=== PATIENT | female | born 1985 | race American Indian/Alaskan Native ===

== ENCOUNTER 2018-12-05 05:27 | Outpatient (CLI) | payer BC, MEDICAID ==
[2018-12-05 06:23] VITALS: BP 124/80
== END 2018-12-05 06:43 | disposition home or self-care (01) ==
LOC: TRG 05:27
PROVIDERS: ATTEND Obstetrics & Gynecology
DX: O47.1 False labor at or after 37 completed weeks of gestation (principal); Z3A.37 37 weeks gestation of pregnancy
CPT/HCPCS: 59025

== ENCOUNTER 2018-12-06 07:38 | Outpatient (CLI) | payer BC, MEDICAID ==
[2018-12-06 07:57] VITALS: BP 126/80
== END 2018-12-06 10:23 | disposition home or self-care (01) ==
LOC: TRG 07:38
PROVIDERS: ATTEND Obstetrics & Gynecology
DX: O60.03 Preterm labor without delivery, third trimester (principal); Z3A.37 37 weeks gestation of pregnancy

== ENCOUNTER 2018-12-06 17:35 | Inpatient (IN) | payer BC, MEDICAID ==
[2018-12-06] MEDS ORDERED: NUBAIN IV PRN (18:30)
[2018-12-06] MEDS ORDERED: BRETHINE IVP PRN (18:30)
[2018-12-06] MEDS ORDERED: MINERAL OIL PO PRN (18:30)
[2018-12-06] MEDS ORDERED: STADOL IV PRN (18:30)
[2018-12-06] MEDS ORDERED: AMPICILLIN/NS 2 GM/100 ML 2 GM/100 ML BAG IV ONE (18:30)
[2018-12-06] MEDS ORDERED: BRETHINE SUB-Q PRN (18:30)
[2018-12-06] MEDS ORDERED: XYLOCAINE 2% INFILTRATI ONE (18:30)
[2018-12-06] MEDS ORDERED: ZOFRAN IV PRN ×2 (18:30→22:57)
[2018-12-06 18:51] LABS: Hematocrit 41.6 % (30.3-42.9); Hemoglobin 14.1 gm/dl (10.1-14.3); Mean Corpuscular HGB Conc 34 % (30-34); Mean Corpuscular Volume 93 fl (79-97); Platelet Count 146 K/mm3 (140-440); Red Blood Count 4.47 M/mm3 (3.65-5.03); Red Cell Distribution Width 15.6 % (13.2-15.2)
[2018-12-06] MEDS: SUBLIMAZE IV PRN ×2 (18:51→20:37)
[2018-12-06] MEDS ORDERED: LACTATED RINGERS 1,000 ML IV SCH (19:00)
[2018-12-06] MEDS ORDERED: PITOCin/NS 30 UNIT/500ML 30 UNITS/500 ML BAG IV SCH ×2 (19:00)
[2018-12-06] MEDS: PITOCin/NS 20 UNIT/1000ML DRIP 20 UNITS/1,000 ML BAG IV SCH ×2 (20:15→21:56)
--- NOTE | 2018-12-06 21:03 | Procedure Note ---
OB Delivery Note - Delivery Date of Delivery: 12/06/18 Surgeon: JUDY GODINEZ Estimated blood loss: 200cc - Vaginal Delivery presentation: vertex Delivery position: OA Intrapartum events: mult.variable deceleratio Delivery induction: none Delivery monitor: external FHT, external uterine Route of delivery: Delivery placenta: spontaneous Delivery cord: 3 umbilical vessels Delivery laceration: 2nd degree Delivery repair: vicryl Anesthesia: local Delivery comments: Called to attend delivery as patient's OB provider was en route to hospital. Spontaneous vaginal delivery at 20:05 of liveborn male infant weighing 6 lb. 11 oz. over 2nd degree midline episiotomy with apgars of 8/9. Deep variable FHR decelerations just prior to delivery. 2nd degree midline episiotomy cut to expedite delivery. Tight nuchal cord times 1, manually reduced. Baby was vigorous at and cried immediately after . Baby was placed skin to skin with mom where he was suctioned with a bulb syringe and dried with warm blankets. 3 vessel cord double clamped and cut after cessation of pulsation. Cord blood obtained. Spontaneous delivery of intact placenta and membranes by osborn mechanism. EBL 200 cc. Pitocin to IV fluids after delivery of placenta. Fundus firm and midline. 2nd degree midline episiotomy repaired with 2-0 vicryl in usual sterile fashion. No other lacerations noted. Vaginal sweep negative. Sponge count correct. Mother and baby stable.
--- NOTE | 2018-12-06 21:12 | History and Physical Report ---
History of Present Illness Date of examination: 12/06/18 Date of admission: 12/06/18 17:55 Chief complaint: My water broke History of present illness: Pt is a 33 year old who presents in active labor with srom at 37.5 weeks. Her EDc 12/23/18 Pt was 4 on admission and rapidly progressed to complete. She received care at [facility]. 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 records are not available for review. 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 Social history: - Obstetrical History Expected Date of Delivery: 12/23/18 Actual Gestation: 37 Week(s) 4 Day(s) : 1 Medications and Allergies Allergies Allergy/AdvReac Type Severity Reaction Status Date / Time No Known Allergies Allergy Verified 12/05/18 06:33 Home Medications Medication Instructions Recorded Confirmed Last Taken Type No Known Home Medications [No 12/06/18 12/06/18 Unknown History Reported Home Medications] Active Meds: Active Medications Butorphanol Tartrate (Stadol) 2 mg IV Q2H PRN PRN Reason: Pain , Severe (7-10) Ephedrine Sulfate (Ephedrine Sulfate) 10 mg IV Q2M PRN PRN Reason: Hypotension Fentanyl (Sublimaze) 100 mcg IV Q2H PRN PRN Reason: Labor Pain Last Admin: 12/06/18 20:37 Dose: 100 mcg Documented by: Oxytocin/Sodium Chloride (Pitocin/Ns 20 Unit/1000ml Drip) 20 units in 1,000 mls @ 125 mls/hr IV DIRECT DELMAR Oxytocin/Sodium Chloride (Pitocin/Ns 30 Unit/500ml) 30 units in 500 mls @ 1 mls/hr IV TITR DELMAR; Protocol Oxytocin/Sodium Chloride (Pitocin/Ns 30 Unit/500ml) 30 units in 500 mls @ 2 mls/hr IV TITR DELMAR; Protocol Lactated Ringer's (Lactated Ringers) 1,000 mls @ 125 mls/hr IV DIRECT DELMAR Last Admin: 12/06/18 18:46 Dose: 125 mls/hr Documented by: Ampicillin Sodium (Ampicillin/Ns 1 Gm/50 Ml) 1 gm in 50 mls @ 100 mls/hr IV Q4HR DELMAR; Protocol Mineral Oil (Mineral Oil) 30 ml PO QHS PRN PRN Reason: Constipation Nalbuphine HCl (Nubain) 10 mg IV Q2H PRN PRN Reason: Pain, Moderate (4-6) Ondansetron HCl (Zofran) 4 mg IV Q8H PRN PRN Reason: Nausea And Vomiting Terbutaline Sulfate (Brethine) 0.25 mg SUB-Q ONCE PRN PRN Reason: Hyperstimulation/Hypertonicity Terbutaline Sulfate (Brethine) 0.25 mg IVP ONCE PRN PRN Reason: Hyperstimulation/Hypertonicity Review of Systems All systems: negative Genitourinary: leakage of fluid, contractions - Vital Signs Vital signs: Vital Signs Pulse Pulse Ox 118 H 100 12/06/18 18:12 12/06/18 18:12 Temp Pulse Resp BP Pulse Ox 98.2 F 125 H 20 122/58 68 L 12/06/18 18:34 12/06/18 21:04 12/06/18 20:37 12/06/18 20:49 12/06/18 21:04 - Physical Exam Breasts: Cardiovascular: Regular rate, Normal S1, Normal S2 Abdomen: Positive: normal appearance, soft, normal bowel sounds. Negative: distention, tenderness Vulva: both: normal Vagina: Positive: normal moisture. Negative: discharge Cervix: Negative: lesion, discharge Uterus: Positive: normal size, normal contour Adnexa: both: normal Anus/Rectum: Positive: normal perianal skin, heme negative. Negative: rectal mass, hemorrhoids Extremities: Deep Tendon Reflex Grade: Normal +2 - Obstetrical FHR: auscultation normal Cervical Dilatation: 4 Cervical Effacement Percentage: 80 station: 0 Results Result Diagrams: 12/06/18 18:40 Abnormal lab results 12/06/18 Range/Units 18:40 WBC 11.1 H (4.5-11.0) K/mm3 RDW 15.6 H (13.2-15.2) % All other labs normal. Assessment and Plan IUP at 37.4 in labor. Admit. Will treat for unknown GBS. Will augment if needed. Anticipate .
[2018-12-06] MEDS ORDERED: AMPICILLIN/NS 1 GM/50 ML 1 GM/50 ML BAG IV SCH (22:31)
[2018-12-06] MEDS ORDERED: TYLENOL PO PRN (22:57)
[2018-12-06] MEDS ORDERED: DULCOLAX PR PRN (22:57)
[2018-12-06] MEDS ORDERED: LANSINOH TP PRN (22:57)
[2018-12-06] MEDS ORDERED: BENADRYL PO PRN (22:57)
[2018-12-06] MEDS ORDERED: SODIUM CHLORIDE FLUSH SYRINGE 10 ML IV NR (22:57)
[2018-12-06] MEDS ORDERED: TUCKS PAD TP PRN (22:57)
[2018-12-06] MEDS ORDERED: PHENERGAN PO PRN (22:57)
[2018-12-06] MEDS ORDERED: MILK OF MAGNESIA PO PRN (22:57)
[2018-12-06] MEDS ORDERED: PHENERGAN PR PRN (22:57)
[2018-12-06] MEDS: COLACE PO SCH (23:05)
[2018-12-06] MEDS: IBUPROFEN PO SCH (23:20)
[2018-12-07] MEDS: NORCO 5/325 PO PRN ×2 (05:47→21:52)
[2018-12-07] MEDS: IBUPROFEN PO SCH ×3 (06:26→17:33)
--- NOTE | 2018-12-07 08:38 | Progress Note ---
Assessment and Plan - Patient Problems (1) Active labor at term Current Visit: Yes Status: Acute Plan to address problem: patient doing well discharge home tomorrow Subjective - Subjective Date of service: 12/07/18 Interval history: Patient without complaints. States she is GBS positive however did not have enough time to receive adequate antibiotic coverage. Patient reports: appetite normal, voiding normally, pain well controlled [place]: doing well Objective - Vital Signs Latest vital signs: Vital Signs Temp Pulse Resp BP BP Pulse Ox 12/07/18 05:39 98.4 F 86 20 131/79 100 12/07/18 01:33 98.6 F 85 18 120/72 100 12/06/18 22:50 99.4 F 122 H 18 112/74 99 12/06/18 22:12 107 H 100 12/06/18 22:07 109 H 100 12/06/18 22:04 105 H 128/69 12/06/18 22:02 101 H 100 12/06/18 21:57 111 H 100 12/06/18 21:52 97 H 100 12/06/18 21:49 113 H 128/66 12/06/18 21:47 102 H 99 12/06/18 21:42 109 H 100 12/06/18 21:37 108 H 99 12/06/18 21:35 112 H 125/59 12/06/18 21:32 113 H 100 12/06/18 21:27 118 H 100 12/06/18 21:22 115 H 100 12/06/18 21:17 116 H 100 12/06/18 21:12 118 H 100 12/06/18 21:07 119 H 100 12/06/18 21:04 125 H 68 L 12/06/18 21:02 120 H 100 12/06/18 20:57 122 H 99 12/06/18 20:52 122 H 100 12/06/18 20:49 127 H 122/58 12/06/18 20:37 20 12/06/18 20:34 112 H 130/67 12/06/18 20:02 138 H 100 12/06/18 19:59 111 H 86 12/06/18 19:58 126 H 155/86 12/06/18 19:57 127 H 100 12/06/18 19:52 82 L 12/06/18 19:47 111 H 99 12/06/18 19:42 100 H 100 12/06/18 19:37 101 H 98 12/06/18 19:32 95 H 96 12/06/18 19:30 115 H 137/65 12/06/18 19:27 111 H 100 12/06/18 19:22 126 H 100 12/06/18 19:17 118 H 100 12/06/18 19:12 89 100 12/06/18 19:07 118 H 100 12/06/18 19:02 91 H 100 12/06/18 18:57 103 H 137/91 100 12/06/18 18:52 111 H 100 12/06/18 18:47 107 H 100 12/06/18 18:43 117 H 82 L 12/06/18 18:42 99 H 100 12/06/18 18:37 111 H 99 12/06/18 18:34 98.2 F 22 12/06/18 18:32 98.4 F 108 H 100 12/06/18 18:27 107 H 100 12/06/18 18:26 107 H 138/87 12/06/18 18:22 113 H 100 12/06/18 18:21 121 H 174/108 12/06/18 18:17 120 H 100 12/06/18 18:12 118 H 100 Intake and Output 12/06/18 12/07/18 12/07/18 22:59 06:59 14:59 Intake Total 210.417 480 Output Total 300 800 Balance -89.583 -320 Intake: IV 210.417 PITOCin/NS 20 UNIT/1000ML 210.417 DRIP 20 units In 1,000 ml @ 125 mls/hr IV DIRECT DELMAR Rx#:[id number] Intake, Free Water 480 Output: Urine 300 800 Void 300 800 Other: Total, Output Amount 300 600 # Voids Void 1 Weight 81.193 kg Estimated Blood Loss 200 - Exam Abdomen: Present: normal appearance, soft - Labs Labs: Abnormal lab results 12/06/18 Range/Units 18:40 WBC 11.1 H (4.5-11.0) K/mm3 RDW 15.6 H (13.2-15.2) %
[2018-12-07 10:02] LABS: Hematocrit 34.6 % (30.3-42.9); Hemoglobin 11.9 gm/dl (10.1-14.3)
[2018-12-07] MEDS: PRENATAL VITAMIN PO SCH (10:06)
[2018-12-07] MEDS: COLACE PO SCH ×2 (10:06→21:51)
[2018-12-07] MEDS ORDERED: DERMOPLAST TP PRN (18:57)
[2018-12-08] MEDS: NORCO 5/325 PO PRN ×2 (05:21→21:56)
[2018-12-08] MEDS: IBUPROFEN PO SCH ×3 (05:22→18:55)
--- NOTE | 2018-12-08 08:33 | Progress Note ---
Assessment and Plan A: PPD#2 s/p at term GBS positive, inadequately treated P: Baby must remain for 48 hrs, (8 pm tonight) Anticipate discharge tomorrow morning. Subjective - Subjective Date of service: 12/08/18 Principal diagnosis: s/p at term Interval history: Pt without complaints. Patient reports: appetite normal, voiding normally, pain well controlled, ambulating normally [place]: doing well Objective - Vital Signs Latest vital signs: Vital Signs Temp Pulse Resp BP BP Pulse Ox 12/07/18 23:30 98.8 F 81 20 108/62 12/07/18 16:54 98.3 F 76 18 118/72 100 12/07/18 13:16 97.6 F 84 18 115/72 99 12/07/18 08:49 97.6 F 78 18 116/81 100 Intake and Output 12/07/18 12/08/18 12/08/18 22:59 06:59 14:59 Intake Total 300 200 Balance 300 200 Intake: Oral 200 Intake, Free Water 300 Other: Total, Intake Amount 200 - Exam Breasts: Present: deferred Cardiovascular: Present: Regular rate Lungs: Present: Clear to auscultation Abdomen: Present: soft Uterus: Present: fundal height below umbilicus Extremities: Present: edema (trace)
--- NOTE | 2018-12-08 08:36 | Discharge Summary ---
Providers - Providers Date of Admission: 12/06/18 17:55 Date of discharge: 12/09/18 Attending physician: JUANITO GALVAN Primary care physician: JUNIOR [employer] MANAGER Hospitalization Reason for admission: rupture of membranes Delivery: Procedure details: Please see delivery note. Episiotomy: midline Laceration: 2nd degree Other procedures: none complications: none Discharge diagnosis: IUP at term delivered [place] baby: male Hospital course: Pt was admitted with rupture of membranes and subsequently went on to have a spontaneous vaginal delivery which she tolerated well. Her course was uncomplicated and she met discharge criteria on PPD#3. She will follow up in the office in 4 wks for a postoperative exam. Condition at discharge: Stable Disposition: DC-01 TO HOME OR SELFCARE - Discharge Diagnoses (1) Active labor at term Status: Acute Plan - Discharge Medications Prescriptions: Ibuprofen [Motrin] 800 mg PO Q8HR PRN #30 tablet PRN Reason: Pain, Moderate (4-6) HYDROcodone/APAP 5-325 [[place] 5/325] 1 each PO Q6HR PRN #20 tablet PRN Reason: Pain - Provider Discharge Summary Activity: routine, no sex for 6 weeks, no heavy lifting 4 weeks, no strenuous exercise Diet: routine Instructions: routine Additional instructions: [] Smoking cessation referral if applicable(refer to patient education folder for contact #) [] Refer to [facility]'s [facility] Booklet Call your doctor immediately for: * Fever > 100.5 * Heavy vaginal bleeding ( >1 pad per hour) * Severe persistent headache * Shortness of breath * Reddened, hot, painful area to leg or breast * Drainage or odor from incision. * Keep incision clean and dry at all times and follow doctor's instructions regarding bathing/showering - Follow up plan Follow up: STEVE VALERA MD [Primary Care Provider] - 7 Days AMAN ROCK MD [Staff Physician] - 01/04/19 (Please call to schedule an appt in 4 wks. Please schedule your son's circumcision before he is one month old. )
[2018-12-08] MEDS: COLACE PO SCH ×2 (10:12→21:56)
[2018-12-08] MEDS: PRENATAL VITAMIN PO SCH (10:12)
[2018-12-09] MEDS: NORCO 5/325 PO PRN (04:11)
--- NOTE | 2018-12-09 08:34 | Progress Note ---
Assessment and Plan PPD3 s/p at term Labs and vital signs stable Baby cleared for discharge Discharge to home today Subjective - Subjective Date of service: 12/09/18 Principal diagnosis: s/p at term Interval history: Pt is PPD3 s/p of viable at term Patient reports: appetite normal, voiding normally, pain well controlled, flatus, ambulating normally [place]: doing well, nursing well, bottle feeding (both) Objective - Vital Signs Latest vital signs: Vital Signs Temp Pulse Resp BP Pulse Ox 12/09/18 04:11 18 12/09/18 01:33 98.1 F 74 20 127/75 97 12/08/18 21:56 18 12/08/18 15:40 99.5 F 74 18 108/60 99 Intake and Output 12/08/18 12/09/18 12/09/18 23:59 07:59 15:59 Intake Total 1320 240 Balance 1320 240 Intake: Oral 600 240 Intake, Free Water 720 Other: Total, Intake Amount 120 120 # Voids Void 3 1 - Exam Lungs: Present: Normal air movement Abdomen: Present: normal appearance, soft Uterus: Present: normal, firm, fundal height below umbilicus Extremities: Present: normal
[2018-12-09 09:30] VITALS: BP 130/83
[2018-12-09] MEDS: COLACE PO SCH (10:24)
[2018-12-09] MEDS: IBUPROFEN PO SCH ×2 (10:24)
[2018-12-09] MEDS: PRENATAL VITAMIN PO SCH (10:24)
== END 2018-12-09 11:25 | disposition home or self-care (01) | DRG 807 ==
LOC: TRG 17:35 → LD 17:55 → OB 22:39
PROVIDERS: ADMIT Obstetrics & Gynecology; ATTEND Obstetrics & Gynecology
PROC: 10E0XZZ Delivery of Products of Conception, External Approach (ICD-10-PCS; principal; 2018-12-06)
PROC: 0KQM0ZZ Repair Perineum Muscle, Open Approach (ICD-10-PCS; 2018-12-06)
PROC: 0W8NXZZ Division of Female Perineum, External Approach (ICD-10-PCS; 2018-12-06)
DX: O99.824 Streptococcus B carrier state complicating childbirth (principal); Z37.0 Single live birth; O69.1XX0 Labor and delivery complicated by cord around neck, with compression, not applicable or unspecified; Z3A.37 37 weeks gestation of pregnancy; O76 Abnormality in fetal heart rate and rhythm complicating labor and delivery; O70.1 Second degree perineal laceration during delivery
CPT/HCPCS: 36415; 85014; 85018; 85027; 86592; 86850; 86900; 86901; 96365; 96372; 96374; G0378; A6250; J0290; J2590; J3010; J7120